=== PATIENT | female | born 1975 | race Hispanic/Latino ===

== ENCOUNTER 2016-07-10 20:57 | Emergency (ER) | payer OTHER ==
[2016-07-10] MEDS ORDERED: Mag-Al Plus 1200 MG/1200 MG/120 MG/30 ML UDCUP ONE (21:29)
[2016-07-10] MEDS ORDERED: Pantoprazole 40 MG VIAL ONE (21:29)
[2016-07-10] MEDS ORDERED: Lidocaine Viscous Sol 2% 15 ml UD Cup ONE (21:30)
[2016-07-10] MEDS ORDERED: Nystatin 500,000 UNITS/5 ML UDCUP ONE (21:35)
[2016-07-10 21:36] LABS: #Basophils 0.1 thou/uL (0.0-0.2); #Eosinphils 0.1 thou/uL (0.0-0.7); #Monocytes 0.5 thou/uL (0.11-0.59); #Neutrophils 2.2 thou/uL (1.40-6.50); %Basophils 1.1 % (0.0-1.0); %Lymphocytes 51.4 % (21.0-51.0); Hematocrit 33.9 % (36.0-47.0); Mean Platelet Volume 7.4 fL (7.4-10.4); Red Blood Cell (RBC) Count 4.31 mill/uL (4.20-5.40); White Blood Cell (WBC) Count 5.8 thou/uL (4.8-10.8)
[2016-07-10 21:46] LABS: ALT (SGPT) 25 U/L (0-55); AST (SGOT) 28 U/L (5-34); Alkaline Phosphatase 83 U/L (40-150); Anion Gap 14 mmol/L (10-20); BUN (Urea Nitrogen) 11 mg/dL (7.0-18.7); Bilirubin, Total 0.3 mg/dL (0.2-1.2); Calc. Creatinine Clearance 0 mL/min (70-130); Carbon Dioxide 23 mmol/L (22-29); Chloride 109 mmol/L (98-107); Estimated GFR-MDRD 81; Globulin 3.1 g/dL (2.4-3.5); Lipase 25 U/L (8-78)
[2016-07-10 21:47] LABS: Troponin I Less than 0.010 ng/mL (< 0.028)
--- NOTE | 2016-07-10 22:14 | RAD ---
CHEST ONE VIEW 07/10/16 HISTORY: Chest pain. COMPARISON: 01/29/15 FINDINGS: The cardiac silhouette is magnified by projection. Pulmonary vasculature is unremarkable. Mediastinu m is midline. There is no confluent air space consolidation or evidence of pneumothorax. IMPRESSION: No active cardiopulmonary abnormalities are demonstrated. POS: H
[2016-07-10 23:33] LABS: Troponin I Less than 0.010 ng/mL (< 0.028)
--- NOTE | 2016-07-11 00:21 | ERRECORD ---
[facility] EMERGENCY RECORD HPI CHEST PAIN (21:42 AGRE) CHIEF COMPLAINT: Patient presents for evaluation of chest pain. HISTORIAN: History provided by patient, PAINS STARTED IN THE LEFT HAND THEN UP THE ARM TO THE LEFT NECK AND THE LEFT SIDE OF HER CHEST ABOUT 30 MINUTES NAIL EXPERT. IT IS A BURNING PAIN AND NUMBNESS. PATIENT SAYS HAD ENDOSCOPY EARLIER IN THE DAY AND THOUGHT IT WAS RELATED BUT CALLED THE NURSE AND WAS TOLD TO GO TO THE ED TO GET CHECKED OUT. SHE WAS LAYING DOWN WHEN THE PAIN ONSET. NOTHING MAKES IT WORST OR BETTER. NO COUGHIN, VOMITING, FEVER OR CHILLS. NO SOB. DENIES HX OF PE OR DVT, CAD, HTN, HIGH CHOLERSTEROL, DIABETES. LOCATION: No localizing symptoms. QUALITY: Pain is dull in nature, described as tingling. SEVERITY: Maximum severity of symptoms moderate, Currently symptoms are moderate. TIME COURSE: Gradual onset of symptoms. ASSOCIATED WITH: Denies any other complaints. EXACERBATED BY: Patient's condition exacerbated by nothing. RELIEVED BY: Patient's condition relieved by nothing. RISK FACTORS: Coronary artery disease risk factors, include family history, No thoracic aortic dissection risk factors, No pulmonary embolism risk factors. WELLS CRITERIA FOR PE: No clinical signs and symptoms of a DVT (0), Patient does not have, or is likely to not have, a primary diagnosis of PE (0), Patient's heart rate is less than 100 (0), Patient has no history of immobilization within 3 days, nor any surgical history within the past 4 weeks (0), Patient has not had an objectively diagnosed PE or DVT previously (0), Patient does not have hemoptysis (0), Patient has not had treatment for malignancy within the last 6 months, nor palliative (0). PAST MEDICAL HISTORY (21:21 [facility]) MEDICAL HISTORY: Notes: GUILLIAN BARRE SYNDROME, Notes: Insomnia and Urinary frequency., Flu vaccine not up to date, Tetanus immunization up to date, Pneumococcal vaccine not up to date, Past medical history includes genitourinary history, kidney stones,. verefied 07/10/16. FEMALE SURGICAL HISTORY: Surgical history of hysterectomy, Date of surgery 03/10/16, Surgical history of cholecystectomy, Surgical history of tubal ligation. verefied 07/10/2016. PSYCHIATRIC HISTORY: No previous psychiatric history. SOCIAL HISTORY: Patient denies alcohol use, Patient denies drug use, Patient has no smoking history, Lives at home, with family. KNOWN ALLERGIES No Known Drug Allergies CURRENT MEDICATIONS oxybutynin chloride: &a-1R&a+25V*p+0X*p5115P*c202B*c15G*c2P*p-0X&a-25V&a+1R Name: Anne Poole : 1975 F40 MedRec: [id number] AcctNum: [id number] Prepared: SatJul 11, 2016 00:17 by Interface Page 1 of 2 pMD [facility] EMERGENCY RECORD TABLET, EXTENDED RELEASE 24 HR : Strength - 5 mg : ORAL Patient Dose: Unknown. (21:13 [facility]) zolpidem: TABLET : Strength - 10 mg : ORAL Patient Dose: Unknown. (21:14 [facility]) CANNOT REMEMBER OTHER MEDS (21:14 [facility]) VITAL SIGNS VITAL SIGNS: BP: 128/72, Pulse: 103, Resp: 18, Pain: 5, O2 sat: 100 on Room Air, Time: 07/10/2016 21:11. (21:11 [facility]) BP: 110/67, Pulse: 93, Resp: 14, Temp: 98.1, Pain: 0, O2 sat: 98 on ra, Time: 07/11/2016 00:01. (SatJul 11, 2016 00:01 [facility] [place] EKG INTERPRETATION (21:16 AGRE) 12 LEAD EKG INTERPRETATION: 12 lead EKG interpreted by Emergency Department Physician at time of study, 12 lead EKG shows normal sinus rhythm, Rate (beats per minute): 87, Conduction with, incomplete right bundle branch block, T waves normal, [place] normal, LVH. RADIOLOGYINTERPRETATION (22:30 AGRE) RESOURCE PROTECTION SPECIALIST: Preliminary review of x-rays by, Radiologist, IMPRESSION: No active cardiopulmonary abnormalities are demonstrated. MEDICATION ADMINISTRATION SUMMARY Drug Name: Protonix intravenous, Dose Ordered: 40 mg, Route: IV Push, Status: Given, Time: 21:39 07/10/2016, Drug Name: GI COCKTAIL- GREEN, Dose Ordered: 40 mL, Route: Oral, Status: Given, Time: 21:38 07/10/2016, Detailed record available in Medication Service section. PROBLEM LIST No recorded problems DIAGNOSIS (23:39 AGRE) FINAL: PRIMARY: CHEST PAIN UNSPECIFIED. PRESCRIPTION No recorded prescriptions DISPOSITION PATIENT: Disposition Type: Discharge, Disposition: *Discharge Home, Condition: Improved. (23:39 TOD) Patient left the department. (SatJul 11, 2016 00:08 THANH) Lyons: TOD=MD West, Julius SETH=JOS Rodriguez, Sunita MSMI=JOS Campa, Soha &a-1R&a+25V*p+0X*e2109C*c202B*c15G*c2P*p-0X&a-25V&a+1R Name: Anne Poole : 1975 F40 MedRec: [id number] AcctNum: [id number] Prepared: SatJul 11, 2016 00:17 by Interface Page 2 of 2 pMD MTDD
--- NOTE | 2016-07-11 00:27 | PICIS ---
[facility] EMERGENCY RECORD TRIAGE (SatJul 10, 2016 21:13 [facility]) TRIAGE NOTES: LEFT SIDED CP. LEFT ARM PAIN AND NUMBNESS. 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 (SatJul 10, 2016 21:13 [facility]) PATIENT: NAME: Anne Poole, AGE: 40, GENDER: female, : Sat1975, TIME OF GREET: SatJul 10, 2016 20:59, PREFERRED LANGUAGE: Swedish, ETHNICITY: or , ECODE BILLING MAP: [facility], SSN: [id number], Zip Code: [address], KG WEIGHT: 83.91, PHONE: , , , PERSON ID: [id number], PCP: BRENNA HENDRIX. (SatJul 10, 2016 21:13 [facility]) COMPLAINT: CHEST PAIN AND LEFT ARM NUBNESS. (SatJul 10, 2016 21:13 [facility]) ADMISSION: URGENCY: 2 Emergent, ADMISSION SOURCE: Home, TRANSPORT: CAR, BED: ER -03. (SatJul 10, 2016 21:13 [facility]) PAIN: Onset was 07/10/2016 20:15. (21:21 [facility]) IMMUNIZATIONS: Flu vaccine not up to date, Tetanus not up to date, Pneumococcal vaccine not up to date. (21:21 [facility]) SIRS SCORING: Heart Rate 55-109 (0), Temp range 96.8-101.1 (0), respiratory rate 12-24 (0), Mental Status altered: no (0). (21:21 [facility]) TRIAGE SCREENING: Patient denies suicidal ideation, Patient denies presence of domestic violence. (21:21 [facility]) TREATMENTS IN PROGRESS: Treatments given Prehospital: NONE. (21:21 [facility]) PROVIDERS: TRIAGE NURSE: Sunita Rodriguez RN. (SatJul 10, 2016 21:13 [facility]) VITAL SIGNS: BP 128/72, Pulse 103, Resp 18, Pain 5, O2 Sat 100, on Room Air, Time 07/10/2016 21:11. (21:11 [facility]) PREVIOUS VISIT ALLERGIES: No Known Drug Allergies. (SatJul 10, 2016 21:13 [facility]) No Known Drug Allergies. (21:21 [facility]) KNOWN ALLERGIES No Known Drug Allergies CURRENT MEDICATIONS oxybutynin chloride: TABLET, EXTENDED RELEASE 24 HR : Strength - 5 mg : ORAL Patient Dose: Unknown. (21:13 [facility]) zolpidem: TABLET : Strength - 10 mg : ORAL Patient Dose: Unknown. (21:14 [facility]) CANNOT REMEMBER OTHER MEDS (21:14 [facility]) VITAL SIGNS VITAL SIGNS: BP: 128/72, Pulse: 103, Resp: 18, Pain: 5, O2 sat: 100 on Room Air, Time: 07/10/2016 21:11. (21:11 [facility]) BP: 110/67, Pulse: 93, Resp: 14, Temp: 98.1, Pain: 0, O2 sat: 98 on ra, Time: 07/11/2016 00:01. (SatJul 11, 2016 00:01 [facility]) &a-1R&a+25V*p+0X*f4530S*c202B*c15G*c2P*p-0X&a-25V&a+1R Name: Anne Poole : 1975 F40 MedRec: [id number] AcctNum: [id number] Prepared: SatJul 11, 2016 00:23 by Interface Page 1 of 7 pMD [facility] EMERGENCY RECORD NURSING ASSESSMENT: CARDIOVASCULAR (21:20 [facility]) CONSTITUTIONAL: Complex assessment performed, Patient arrives ambulatory, Gait steady, History obtained from patient, Patient appears comfortable, Patient cooperative, Patient alert, Oriented to person, place and time, Skin warm, Skin dry, Skin normal in color, Mucous membranes pink, Mucous membranes moist, Patient is well-groomed, Patient complains of LEFT SIDED CP & LEFT ARM PAIN/NUMBNESS. PAIN: sharp pain, to the left chest, to the left arm, Onset of pain 07/10/2016 20:15, on a scale 0-10 patient rates pain as 5. CARDIOVASCULAR: Cardiovascular assessment findings include heart rate normal, Heart rhythm normal sinus, Heart sounds normal, Left radial pulse +3(easily palpated, considered normal), Right radial pulse +3(easily palpated, considered normal), Left dorsalis pedis pulse +3(easily palpated, considered normal), Right dorsalis pedis pulse +3(easily palpated, considered normal), No associated diaphoresis, no associated dyspnea, no associated dizziness, No history of pulmonary embolism, No history of DVT or leg swelling. RESPIRATORY/CHEST: Breath sounds clear, Respiratory assessment findings include respiratory effort easy, Respirations regular, Conversing normally, Neck and chest exam findings include trachea midline, Chest expansion equal, Chest movement symmetrical, no associated cough noted, no associated fever. NURSING PROCEDURE: BEDSIDE RADIOLOGY (21:20 ER) PATIENT IDENTIFIER: Patient actively involved in identification process. BEDSIDE RADIOLOGY: Bedside radiology performed by ALEXSANDRA, Portable chest x-ray performed. NURSING PROCEDURE: DISCHARGE NOTE (SatJul 11, 2016 00:01 [facility] [place] DISCHARGE: Patient discharged to home, ambulating without assistance, family driving, accompanied by other family member, Discharge instructions given to patient, Discharge instructions given to DAUGHTER, Above person(s) verbalized understanding of discharge instructions and follow-up care, Patient treated and evaluated by physician. BELONGINGS: Belongings and valuables with patient at time of discharge include:, Belongings remain with patient, Valuables remain with patient. SAFETY: Side rails up, Cart/Stretcher in lowest position, Family at bedside, Call light within reach, Hospital ID band on. VITAL SIGNS: BP: 110, / 67, Pulse: 93, Resp: 14, Temp: 98.1, Pain: 0, O2 sat: 98, on: ra. NURSING PROCEDURE: EKG CHART PATIENT IDENTIFIER: Patient actively involved in identification process, Patient's identity verified by patient stating name, &a-1R&a+25V*p+0X*q2984J*c202B*c15G*c2P*p-0X&a-25V&a+1R Name: Anne Poole : 1975 F40 MedRec: [id number] AcctNum: [id number] Prepared: SatJul 11, 2016 00:23 by Interface Page 2 of 7 D [facility] EMERGENCY RECORD Patient's identity verified by patient stating date, Patient's identity verified by hospital ID bracelet. (21:13 [facility]) EKG: EKG indicated for complaint of chest pain, 12 lead EKG performed on the left chest, done by JOS Dorsey, first EKG, Notes: EKG DONE AT 21:03. (21:13 [facility]) FOLLOW-UP: After procedure, EKG for interpretation given to Dr. FLOWERS, Notes: NSR. INCOMPLETE RBBB. (21:59 [facility]) NURSING PROCEDURE: IV PATIENT IDENITIFIER: Patient actively involved in identification process, Patient's identity verified by patient stating name, Patient's identity verified by patient stating date, Patient's identity verified by hospital ID bracelet. (21:15 [facility]) IV SITE 1: IV established, to the left antecubital, using a 20 gauge catheter, in one attempt, IV site prepped with Chloroprep, Saline lock established, Flushed with normal saline (mls): 10mLs, Labs drawn at time of placement, labeled in the presence of the patient and sent to lab, Notes: IV site C/D/I. no pain, redness, or swelling. IV start kit/extension tubing used. (21:15 [facility]) FOLLOW-UP SITE 1: After procedure, no drainage at IV site, After procedure, no swelling at IV site, After procedure, no redness at IV site, IV discontinued, due to patient being discharged, catheter intact. (SatJul 11, 2016 00:04 [facility]) SAFETY: Side rails up, Cart/Stretcher in lowest position, Call light within reach, Hospital ID band on. (21:15 [facility]) NURSING PROCEDURE: LAB DRAW (23:10 [facility]) LAB DRAW: Lab draw indicated for obtaining specimens for evaluation, Subsequent lab draw performed, from vascular access device, existing IV site, LEFT AC, Lab specimens labeled in the presence of the patient and sent to lab, 10ML WASTED BEFORE OBTAINING SAMPLE., Notes: REPEAT TROPONIN. ORDER DETAILS Order Name: B type Natriuretic Peptide, Status: Active, Time: 21:14 07/10/2016, User: TOD, - Ordered for: MD Flowers Andrea, - Entered by: MD Flowers Andrea - Tue Jul 10, 2016 21:14, - Quantity: 1, Order Name: COMPANY SECRETARY ED, Status: Done, Time: 21:19 07/10/2016, User: DORINDA, - Ordered for: MD Flowers Andrea, - Entered by: MD Flowers Andrea - Tue Jul 10, 2016 21:14, - Quantity: 1, Order Name: Cardiac Profile w/CKMB & Troponin - I, Status: Active, Time: 21:14 07/10/2016, User: TOD, - Ordered for: MD Flowers Andrea, - Entered by: MD Flowers Andrea - Tue Jul 10, 2016 21:14, - Quantity: 1, &a-1R&a+25V*p+0X*k9547G*c202B*c15G*c2P*p-0X&a-25V&a+1R Name: Anne Poole : 1975 F40 MedRec: [id number] AcctNum: [id number] Prepared: SatJul 11, 2016 00:23 by Interface Page 3 of 7 D [facility] EMERGENCY RECORD Order Name: CBC with Differential, Status: Active, Time: 21:14 07/10/2016, User: TOD, - Ordered for: MD Flowers Andrea, - Entered by: MD Flowers Andrea aneesh Jul 10, 2016 21:14, - Quantity: 1, Order Name: Comprehensive Metabolic Panel, Status: Active, Time: 21:14 07/10/2016, User: TOD, - Ordered for: MD Flowers Andrea, - Entered by: MD Flowers Andrea - Tue Jul 10, 2016 21:14, - Quantity: 1, Order Name: EKG 12 Lead in Emergency Room, Status: Active, Time: 21:14 07/10/2016, User: TOD, - Ordered for: MD Flowers Andrea, - Entered by: MD Flowers Andrea - Tue Jul 10, 2016 21:14, - Quantity: 1, Order Name: Lipase, Status: Active, Time: 21:14 07/10/2016, User: TOD, - Ordered for: MD Flowers Andrea, - Entered by: MD Flowers Andrea - Tue Jul 10, 2016 21:14, - Quantity: 1, Order Name: SALINE LOCK, Status: Done, Time: 21:19 07/10/2016, User: PHILLIP, - Ordered for: MD Flowers Andrea, - Entered by: MD Flowers Andrea - Tue Jul 10, 2016 21:14, - Quantity: 1, Order Name: Troponin - I, Status: Active, Time: 22:57 07/10/2016, User: TOD, - Ordered for: MD Flowers Andrea, - Entered by: MD Flowers Andrea - Tue Jul 10, 2016 22:57, - Quantity: 1, Order Name: XR Chest 1 View Portable, Status: Active, Time: 21:14 07/10/2016, User: TOD, - Ordered for: MD Flowers Andrea, - Entered by: MD Flowers Andrea - aneesh Jul 10, 2016 21:14, - Quantity: 1. MEDICATION ADMINISTRATION SUMMARY Drug Name: Protonix intravenous, Dose Ordered: 40 mg, Route: IV Push, Status: Given, Time: 21:39 07/10/2016, Drug Name: GI COCKTAIL- GREEN, Dose Ordered: 40 mL, Route: Oral, Status: Given, Time: 21:38 07/10/2016, Detailed record available in Medication Service section. MEDICATION SERVICE GI COCKTAIL- GREEN: Order: GI COCKTAIL- GREEN - Dose: 40 mL : Oral (phenobarbital/hyoscyamine sulfate/atropine sulfate/scopolamine hydrobromide) [10 mL] Lidocaine Viscous (lidocaine HCl) [10 mL] MAG-AL (magnesium hydroxide/aluminum hydroxide) [20 mL] &a-1R&a+25V*p+0X*z5516I*c202B*c15G*c2P*p-0X&a-25V&a+1R Name: Anne Poole : 1975 F40 MedRec: [id number] AcctNum: [id number] Prepared: SatJul 11, 2016 00:23 by Interface Page 4 of 7 pMD [facility] EMERGENCY RECORD Ordered by: Julius Flowers MD Entered by: Julius Flowers MD SatJul 10, 2016 21:15 , Acknowledged by: Sunita Rodriguez RN SatJul 10, 2016 21:24 Documented as given by: Yong Alex RN SatJul 10, 2016 21:38 Patient, Medication, Dose, Route and Time verified prior to administration. Amount given: 40ML, Site: Medication administered P.O., Patient appears Awake and alert- acceptable, Correct patient, time, route, dose and medication confirmed prior to administration, Patient advised of actions and side-effects prior to administration, Allergies confirmed and medications reviewed prior to administration, Administered by YONG ALEX RN, Patient in position of comfort, Side rails up, Cart in lowest position, Family at bedside. Protonix intravenous: Order: Protonix intravenous (pantoprazole sodium) - Dose: 40 mg : IV Push Ordered by: Julius Flowers MD Entered by: Julius Flowers MD SatJul 10, 2016 21:15 , Acknowledged by: Sunita Rodriguez RN Jul 10, 2016 21:24 Documented as given by: Yong Alex RN Jul 10, 2016 21:39 Patient, Medication, Dose, Route and Time verified prior to administration. Amount given: 40MG, IV SITE #1 IVP, initial medication, Slowly, Awake and alert- acceptable, Catheter placement confirmed via flush prior to administration, IV site without signs or symptoms of infiltration during medication administration, No swelling during administration, No drainage during administration, IV flushed after administration, Correct patient, time, route, dose and medication confirmed prior to administration, Patient advised of actions and side-effects prior to administration, Allergies confirmed and medications reviewed prior to administration, Administered by YONG ALEX RN, Patient in position of comfort, Side rails up, Cart in lowest position, Family at bedside. HPI CHEST PAIN (21:42 AGRE) CHIEF COMPLAINT: Patient presents for evaluation of chest pain. 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 IT IS A BURNING PAIN AND NUMBNESS. PATIENT SAYS HAD ENDOSCOPY EARLIER IN THE DAY AND THOUGHT IT WAS RELATED BUT CALLED THE NURSE AND WAS TOLD TO GO TO THE ED TO GET CHECKED OUT. SHE WAS LAYING DOWN WHEN THE PAIN ONSET. NOTHING MAKES IT WORST OR BETTER. NO COUGHIN, VOMITING, FEVER OR CHILLS. NO SOB. DENIES HX OF PE OR DVT, CAD, HTN, HIGH CHOLERSTEROL, DIABETES. LOCATION: No localizing symptoms. QUALITY: Pain is dull in nature, described as tingling. SEVERITY: Maximum severity of symptoms moderate, Currently symptoms are moderate. TIME COURSE: Gradual onset of symptoms. &a-1R&a+25V*p+0X*b0222A*c202B*c15G*c2P*p-0X&a-25V&a+1R Name: Anne Poole : 1975 F40 MedRec: [id number] AcctNum: [id number] Prepared: SatJul 11, 2016 00:23 by Interface Page 5 of 7 pMD [facility] EMERGENCY RECORD ASSOCIATED WITH: Denies any other complaints. EXACERBATED BY: Patient's condition exacerbated by nothing. RELIEVED BY: Patient's condition relieved by nothing. RISK FACTORS: Coronary artery disease risk factors, include family history, No thoracic aortic dissection risk factors, No pulmonary embolism risk factors. WELLS CRITERIA FOR PE: No clinical signs and symptoms of a DVT (0), Patient does not have, or is likely to not have, a primary diagnosis of PE (0), Patient's heart rate is less than 100 (0), Patient has no history of immobilization within 3 days, nor any surgical history within the past 4 weeks (0), Patient has not had an objectively diagnosed PE or DVT previously (0), Patient does not have hemoptysis (0), Patient has not had treatment for malignancy within the last 6 months, nor palliative (0). PAST MEDICAL HISTORY (21:21 [facility]) MEDICAL HISTORY: Notes: GUILLIAN BARRE SYNDROME, Notes: Insomnia and Urinary frequency., Flu vaccine not up to date, Tetanus immunization up to date, Pneumococcal vaccine not up to date, Past medical history includes genitourinary history, kidney stones,. verefied 07/10/16. FEMALE SURGICAL HISTORY: Surgical history of hysterectomy, Date of surgery 03/10/16, Surgical history of cholecystectomy, Surgical history of tubal ligation. verefied 07/10/2016. PSYCHIATRIC HISTORY: No previous psychiatric history. SOCIAL HISTORY: Patient denies alcohol use, Patient denies drug use, Patient has no smoking history, Lives at home, with family. EVENTS TRANSFER: Triage to Emergency Emergency Room -03. (21:13 LK) Removed from Emergency Emergency Room -03. (SatJul 11, 2016 00:08 [facility]) RADIOLOGYINTERPRETATION (22:30 AGRE) ROOM WORKER: Preliminary review of x-rays by, Radiologist, IMPRESSION: No active cardiopulmonary abnormalities are demonstrated. EKG INTERPRETATION (21:16 AGRE) 12 LEAD EKG INTERPRETATION: 12 lead EKG interpreted by Emergency Department Physician at time of study, 12 lead EKG shows normal sinus rhythm, Rate (beats per minute): 87, Conduction with, incomplete right bundle branch block, T waves normal, [place] normal, LVH. PROBLEM LIST No recorded problems DIAGNOSIS (23:39 AGRE) FINAL: PRIMARY: CHEST PAIN UNSPECIFIED. &a-1R&a+25V*p+0X*y0107C*c202B*c15G*c2P*p-0X&a-25V&a+1R Name: Anne Poole : 1975 F40 MedRec: [id number] AcctNum: [id number] Prepared: SatJul 11, 2016 00:23 by Interface Page 6 of 7 pMD [facility] EMERGENCY RECORD DISPOSITION PATIENT: Disposition Type: Discharge, Disposition: *Discharge Home, Condition: Improved. (23:39 AGRE) Patient left the department. (SatJul 11, 2016 00:08 [facility] [place] INSTRUCTION (23:40 AGRE) DISCHARGE: ATYPICAL CHEST PAIN UNKNOWN CAUSE. SPECIAL: THE CAUSE OF YOUR PAIN IS UNCLEAR AT THIS TIME. TAKE MOTRIN AND TYLENOL NEEDED FOR PAIN. FOLLOW UP WITH YOUR PHYSICIAN IN THE MORNING TO ARRANGE FOR FURTHER EVALUATION AND MANAGEMENT OF YOUR PAIN. PRESCRIPTION No recorded prescriptions IMAGING *EKG: Image captured from scanner. (21:59 [facility]) *DISCHARGE INSTRUCTIONS RECEIPT: Image captured from scanner. (SatJul 11, 2016 00:05 [facility] [place] *SUPPLY CHARGE SHEET: Image captured from scanner. (SatJul 11, 2016 00:06 [facility] [place] Lyons: AGRE=MD West, Julius CORTEZ=MICHAEL Sanchez Kayce [facility]=JOS Rodriguez, Sunita [facility]=JOS Campa, Soha &a-1R&a+25V*p+0X*i7110K*c202B*c15G*c2P*p-0X&a-25V&a+1R Name: Anne Poole : 1975 F40 MedRec: [id number] AcctNum: [id number] Prepared: SatJul 11, 2016 00:23 by Interface Page 7 of 7 [facility]MD [facility]
== END 2016-07-11 00:01 | disposition home or self-care (01) ==
LOC: NAV ERS 20:57
DX: R07.9 Chest pain, unspecified (principal); Z79.899 Other long term (current) drug therapy
CPT/HCPCS: 36415; 71010; 80053; 82553; 83690; 83880; 84484; 85025; 93005; 96374; C9113

== ENCOUNTER 2018-11-11 23:42 | Emergency (ER) | payer OTHER ==
[2018-11-11] MEDS ORDERED: methylPREDNISolone Acetate 40 mg/ml Vial ONE (23:57)
== END 2018-11-12 00:33 | disposition home or self-care (01) ==
LOC: NAV ERS 23:42
DX: T59.91XA Toxic effect of unspecified gases, fumes and vapors, accidental (unintentional), initial encounter (principal); J98.01 Acute bronchospasm; Z87.442 Personal history of urinary calculi; Z79.899 Other long term (current) drug therapy
CPT/HCPCS: 96372; J1030

== ENCOUNTER 2020-08-29 16:41 | Emergency (ER) | payer OTHER ==
[2020-08-29] MEDS ORDERED: Sodium Chloride 0.9% 1,000 ML ONE (17:18)
[2020-08-29] MEDS ORDERED: Ondansetron PF 4 MG/2 ML Vial ONE (17:18)
[2020-08-29] MEDS ORDERED: Ketorolac Tromethamine 30 MG/ML VIAL ONE (17:18)
[2020-08-29 17:30] LABS: Bilirubin Negative (Negative); Blood, Urine Negative (Negative); Glucose, Urine (Dipstick) Negative (Negative); Ketone, Urine Negative (Negative); Leukocyte Negative (Negative); Nitrite Negative (Negative); Protein, Urine (Dipstick) Negative (Neg-Trace); Urobilinogen 0.2 mg/dL (Less than 2)
[2020-08-29 17:45] LABS: #Eosinphils 0.1 thou/uL (0.0-0.7); #Lymphocytes 1.3 thou/uL (1.20-3.40); #Monocytes 0.3 thou/uL (0.11-0.59); #Neutrophils 3.5 thou/uL (1.40-6.50); %Basophils 0.6 % (0.0-1.0); %Eosinophils 1.2 % (0.0-10.0); %Lymphocytes 24.6 % (21.0-51.0); %Neutrophils 67.7 % (42.0-75.0); Hemoglobin 12.5 g/dL (12.0-16.0); Mean Corpuscular HGB CONC 33.1 g/dL (32.0-36.0); Mean Corpuscular Hemoglobin 27.2 pg (27.0-31.0); Mean Platelet Volume 8.2 fL (7.4-10.4); Platelet Count 191 thou/uL (130-400); RBC Distribution Width 12.2 % (11.5-14.5); White Blood Cell (WBC) Count 5.2 thou/uL (4.8-10.8)
[2020-08-29 17:54] LABS: Clarity SL HAZY (Clear)
[2020-08-29 18:00] LABS: ALT (SGPT) 66 U/L (8-55); AST (SGOT) 69 U/L (5-34); Albumin 3.8 g/dL (3.5-5.0); Alkaline Phosphatase 98 U/L (40-110); Anion Gap 12 mmol/L (10-20); BUN (Urea Nitrogen) 11 mg/dL (7.0-18.7); Bilirubin, Total 0.5 mg/dL (0.2-1.2); Calc. Creatinine Clearance 0 mL/min (70-130); Calcium 7.7 mg/dL (7.8-10.44); Carbon Dioxide 24 mmol/L (22-29); Chloride 106 mmol/L (98-107); Globulin 2.7 g/dL (2.4-3.5); Lipase 13 U/L (8-78); Protein, Total 6.5 g/dL (6.0-8.3); Sodium 139 mmol/L (136-145)
[2020-08-29 18:06] LABS: Glucose 108 mg/dL (70-105)
[2020-08-29] MEDS ORDERED: Potassium Chloride 20 MEQ TAB ONE (18:08)
[2020-08-30 20:59] LABS: SARS-CoV-2 PCR by NAA Not Detected (NotDetected)
== END 2020-08-29 18:35 | disposition home or self-care (01) ==
LOC: NAV ERS 16:41
DX: A08.4 Viral intestinal infection, unspecified (principal); E87.6 Hypokalemia; G47.00 Insomnia, unspecified; G61.0 Guillain-Barre syndrome; K76.0 Fatty (change of) liver, not elsewhere classified; Z87.442 Personal history of urinary calculi
CPT/HCPCS: 80053; 81003; 82274; 83630; 83690; 85025; 87324; 87449; 87635; 96361; 96374; 96375; J1885; J2405; J7050; U0003; U0005

== ENCOUNTER 2020-11-28 23:43 | Emergency (ER) | payer OTHER ==
[2020-11-29 00:16] LABS: Bilirubin Negative (Negative); Blood, Urine Moderate (Negative); Clarity Cloudy (Clear); Glucose, Urine (Dipstick) Negative (Negative); Ketone, Urine Trace mg/dL (Negative); Leukocyte Small (Negative); Nitrite Negative (Negative); Protein, Urine (Dipstick) 30 mg/dL (Neg-Trace); Specific Gravity, Urine 1.025 (1.002-1.036); Urobilinogen 0.2 mg/dL (Less than 2)
[2020-11-29 00:18] LABS: WBC/HPF Greater Than 50 HPF (0-3)
[2020-11-29 00:19] LABS: Bacteria/HPF 1+ HPF (None Seen); Squamous Epithelial 0-3 HPF (0-3)
[2020-11-29] MEDS ORDERED: Phenazopyridine HCl 97.5 MG TABLET ONE (00:29)
[2020-11-29] MEDS ORDERED: Cipro 250 MG TAB ONE (00:29)
== END 2020-11-29 00:35 | disposition home or self-care (01) ==
LOC: NAV ERS 23:43
DX: N39.0 Urinary tract infection, site not specified (principal); Z79.899 Other long term (current) drug therapy
CPT/HCPCS: 51701; 81003; 81015; 87077; 87086; 87186

== ENCOUNTER 2021-04-06 05:21 | Emergency (ER) | payer OTHER ==
[2021-04-06 05:45] LABS: Bilirubin Negative (Negative); Blood, Urine Negative (Negative); Clarity Slightly Cloudy (Clear); Glucose, Urine (Dipstick) Negative (Negative); Ketone, Urine Negative (Negative); Leukocyte Large (Negative); Nitrite Positive (Negative); Protein, Urine (Dipstick) Negative (Neg-Trace); Urobilinogen 0.2 mg/dL (Less than 2); pH, Urine 7.5 (5.0-9.0)
[2021-04-06 05:51] LABS: RBC/HPF None Seen HPF (0-3); Squamous Epithelial 0-3 HPF (0-3); WBC/HPF 21-50 HPF (0-3)
[2021-04-06 05:52] LABS: Bacteria/HPF 1+ HPF (None Seen)
[2021-04-06 05:55] LABS: #Basophils 0.1 thou/uL (0.0-0.2); #Eosinphils 0.1 thou/uL (0.0-0.7); #Lymphocytes 2.4 thou/uL (1.20-3.40); #Monocytes 0.4 thou/uL (0.11-0.59); %Basophils 1.6 % (0.0-1.0); %Eosinophils 2.3 % (0.0-10.0); %Lymphocytes 39.7 % (21.0-51.0); %Monocytes 6.3 % (0.0-10.0); %Neutrophils 50.2 % (42.0-75.0); Hemoglobin 12.4 g/dL (12.0-16.0); Mean Corpuscular HGB CONC 31.9 g/dL (32.0-36.0); Mean Corpuscular Volume 84.6 fL (78.0-98.0); Mean Platelet Volume 8.1 fL (7.4-10.4); Platelet Count 225 thou/uL (130-400); RBC Distribution Width 12.6 % (11.5-14.5); Red Blood Cell (RBC) Count 4.57 mill/uL (4.20-5.40); White Blood Cell (WBC) Count 6.1 thou/uL (4.8-10.8)
[2021-04-06 06:05] LABS: ALT (SGPT) 34 U/L (8-55); AST (SGOT) 31 U/L (5-34); Albumin 3.8 g/dL (3.5-5.0); Alkaline Phosphatase 103 U/L (40-110); Anion Gap 9 mmol/L (10-20); BUN (Urea Nitrogen) 12 mg/dL (7.0-18.7); Bilirubin, Total 0.4 mg/dL (0.2-1.2); Calc. Creatinine Clearance 0 mL/min (70-130); Calcium 8.9 mg/dL (7.8-10.44); Carbon Dioxide 29 mmol/L (22-29); Chloride 105 mmol/L (98-107); Glucose 79 mg/dL (70-105); Potassium 3.7 mmol/L (3.5-5.1); Protein, Total 6.8 g/dL (6.0-8.3); Sodium 139 mmol/L (136-145)
[2021-04-06] MEDS ORDERED: Piperacillin/Tazobactam 4.5 GM VIAL ONE (06:13)
[2021-04-06] MEDS ORDERED: Sodium Chloride 0.9% 100 ML ONE (06:13)
[2021-04-06] MEDS ORDERED: Ketorolac Tromethamine 30 MG/ML VIAL ONE (06:15)
[2021-04-06] MEDS ORDERED: Sodium Chloride 0.9% 1,000 ML ONE (06:15)
== END 2021-04-06 07:30 | disposition home or self-care (01) ==
LOC: NAV ERS 05:21
DX: N39.0 Urinary tract infection, site not specified (principal); Z91.14 Patient's other noncompliance with medication regimen; G47.00 Insomnia, unspecified; Z79.899 Other long term (current) drug therapy
CPT/HCPCS: 80053; 81003; 81015; 85025; 87077; 87086; 87186; 96365; 96375; J1885; J2543; J3490; J7050

== ENCOUNTER 2021-04-13 06:31 | Inpatient (IN) | payer OTHER ==
[2021-04-13] MEDS ORDERED: Sodium Chloride 0.9% 100 ML ONE (07:11)
[2021-04-13] MEDS ORDERED: Cefepime 2 GM VIAL ONE (07:11)
[2021-04-13] MEDS ORDERED: Ketorolac Tromethamine 30 MG/ML VIAL ONE (07:11)
[2021-04-13] MEDS ORDERED: Sodium Chloride 0.9% 1,000 ML ONE (07:12)
[2021-04-13 07:18] LABS: #Basophils 0.1 thou/uL (0.0-0.2); #Eosinphils 0.1 thou/uL (0.0-0.7); #Lymphocytes 1.6 thou/uL (1.20-3.40); #Monocytes 0.6 thou/uL (0.11-0.59); #Neutrophils 5.4 thou/uL (1.40-6.50); %Lymphocytes 21.1 % (21.0-51.0); %Monocytes 7.3 % (0.0-10.0); %Neutrophils 69.5 % (42.0-75.0); Hemoglobin 12.7 g/dL (12.0-16.0); Mean Corpuscular HGB CONC 32.5 g/dL (32.0-36.0); Mean Corpuscular Hemoglobin 27.3 pg (27.0-31.0); Mean Corpuscular Volume 83.9 fL (78.0-98.0); Mean Platelet Volume 7.7 fL (7.4-10.4); Platelet Count 203 thou/uL (130-400); RBC Distribution Width 12.6 % (11.5-14.5); Red Blood Cell (RBC) Count 4.66 mill/uL (4.20-5.40); White Blood Cell (WBC) Count 7.8 thou/uL (4.8-10.8)
[2021-04-13 07:29] LABS: ALT (SGPT) 109 U/L (8-55); AST (SGOT) 86 U/L (5-34); Albumin 3.8 g/dL (3.5-5.0); Alkaline Phosphatase 148 U/L (40-110); Anion Gap 13 mmol/L (10-20); BUN (Urea Nitrogen) 14 mg/dL (7.0-18.7); Bilirubin, Total 0.5 mg/dL (0.2-1.2); Calc. Creatinine Clearance 0 mL/min (70-130); Calcium 9.3 mg/dL (7.8-10.44); Carbon Dioxide 27 mmol/L (22-29); Chloride 103 mmol/L (98-107); Globulin 3.2 g/dL (2.4-3.5); Glucose 105 mg/dL (70-105); Sodium 139 mmol/L (136-145)
[2021-04-13 08:35] LABS: Bilirubin Negative (Negative); Blood, Urine Small (Negative); Clarity Clear (Clear); Glucose, Urine (Dipstick) Negative (Negative); Ketone, Urine Negative (Negative); Leukocyte Trace (Negative); Nitrite Negative (Negative); Protein, Urine (Dipstick) Negative (Neg-Trace); Specific Gravity, Urine 1.015 (1.005-1.030); Urobilinogen 0.2 mg/dL (Less than 2); pH, Urine 6.5 (5.0-9.0)
[2021-04-13 08:49] LABS: Bacteria/HPF Rare-Few HPF (None Seen); Squamous Epithelial 0-3 HPF (0-3); WBC/HPF 0-3 HPF (0-3)
[2021-04-13] MEDS ORDERED: Acetaminophen 325 MG TAB ONE (09:32)
[2021-04-13 09:39] LABS: SARS-CoV-2 NAA Rapid Test Not Detected (NotDetected)
[2021-04-13] MEDS ORDERED: Ondansetron ODT 4 MG TAB PO PRN (11:10)
[2021-04-13] MEDS ORDERED: Ondansetron PF 4 MG/2 ML Vial IVP PRN (11:10)
[2021-04-13] MEDS: Ketorolac Tromethamine 30 MG/ML VIAL IVP PRN (13:24)
[2021-04-13] MEDS: Cefepime 2 GM in Sodium Chloride 0.9% 100 ML IVPB SCH (19:31)
[2021-04-13] MEDS: Acetaminophen 325 MG TAB PO PRN (19:34)
[2021-04-13] MEDS: Cyclobenzaprine 10 MG TAB PO PRN (20:37)
[2021-04-13] MEDS: Amitriptyline HCl 25 MG TAB PO SCH (20:37)
[2021-04-13] MEDS: Zolpidem Tartrate 5 MG TAB PO PRN (20:37)
[2021-04-14] MEDS: LINZESS 290 MCG PO SCH (07:30)
[2021-04-14] MEDS: Cefepime 2 GM in Sodium Chloride 0.9% 100 ML IVPB SCH ×2 (08:24→20:00)
[2021-04-14] MEDS: Citalopram 20 MG TAB PO SCH (08:32)
[2021-04-14] MEDS: ESTROGEN PO SCH (08:32)
[2021-04-14] MEDS: Cholecalciferol 1,000 UNITS (25 MCG) TAB PO SCH (08:32)
[2021-04-14] MEDS ORDERED: PREGABALIN PO SCH ×2 (09:00→21:00)
[2021-04-14] MEDS: Ketorolac Tromethamine 30 MG/ML VIAL IVP PRN (13:29)
[2021-04-14] MEDS: Vancomycin HCl 1 GM in Sodium Chloride 0.9% 250 ML 250 ML IVPB SCH ×2 (14:29→15:47)
[2021-04-14] MEDS: Acetaminophen 325 MG TAB PO PRN ×2 (17:18→21:15)
[2021-04-14] MEDS ORDERED: Vancomycin HCl 1 GM, Admixture Fee 1 EACH in Sodium Chloride 0.9% 250 ML 250 ML IVPB SCH (21:00)
[2021-04-14] MEDS: Cyclobenzaprine 10 MG TAB PO PRN (21:00)
[2021-04-14] MEDS: Amitriptyline HCl 25 MG TAB PO SCH (21:00)
[2021-04-14] MEDS: Zolpidem Tartrate 5 MG TAB PO PRN (21:00)
[2021-04-14] MEDS ORDERED: Pregabalin 50 MG CAP PO SCH (21:00)
[2021-04-14] MEDS: Pregabalin 50 MG CAP PO SCH (21:25)
[2021-04-15 06:43] LABS: #Basophils 0.1 thou/uL (0.0-0.2); #Eosinphils 0.1 thou/uL (0.0-0.7); #Lymphocytes 1.6 thou/uL (1.20-3.40); #Monocytes 0.4 thou/uL (0.11-0.59); #Neutrophils 2.9 thou/uL (1.40-6.50); %Eosinophils 2.1 % (0.0-10.0); %Lymphocytes 32.1 % (21.0-51.0); %Monocytes 7.6 % (0.0-10.0); %Neutrophils 57.2 % (42.0-75.0); Hemoglobin 10.9 g/dL (12.0-16.0); Mean Corpuscular HGB CONC 32.3 g/dL (32.0-36.0); Mean Corpuscular Hemoglobin 27.4 pg (27.0-31.0); Mean Corpuscular Volume 84.9 fL (78.0-98.0); Mean Platelet Volume 8.3 fL (7.4-10.4); Platelet Count 193 thou/uL (130-400); RBC Distribution Width 12.5 % (11.5-14.5); Red Blood Cell (RBC) Count 3.96 mill/uL (4.20-5.40); White Blood Cell (WBC) Count 5.1 thou/uL (4.8-10.8)
[2021-04-15 06:55] LABS: Anion Gap 10 mmol/L (10-20); BUN (Urea Nitrogen) 13 mg/dL (7.0-18.7); Calc. Creatinine Clearance 73 mL/min (70-130); Calcium 8.6 mg/dL (7.8-10.44); Carbon Dioxide 27 mmol/L (22-29); Chloride 109 mmol/L (98-107); Glucose 93 mg/dL (70-105); Potassium 3.9 mmol/L (3.5-5.1); Sodium 142 mmol/L (136-145)
[2021-04-15] MEDS ORDERED: Loratadine 10 MG TAB ONE (07:58)
[2021-04-15] MEDS ORDERED: Cefepime 2 GM VIAL ONE ×2 (07:58→20:36)
[2021-04-15] MEDS: Cefepime 2 GM in Sodium Chloride 0.9% 100 ML IVPB SCH ×2 (08:02→20:48)
[2021-04-15] MEDS: LINZESS 290 MCG PO SCH (08:03)
[2021-04-15] MEDS: Citalopram 20 MG TAB PO SCH (08:03)
[2021-04-15] MEDS: Cholecalciferol 1,000 UNITS (25 MCG) TAB PO SCH (08:04)
[2021-04-15] MEDS: ESTROGEN PO SCH (08:04)
[2021-04-15] MEDS ORDERED: Sodium Chloride 0.9% 10 ML ONE (08:07)
[2021-04-15] MEDS: Pregabalin 50 MG CAP PO SCH ×2 (08:08→20:49)
[2021-04-15 14:32] LABS: Vancomycin, Random 8.8 ug/mL (See Comment)
[2021-04-15] MEDS: Ketorolac Tromethamine 30 MG/ML VIAL IVP PRN (17:28)
[2021-04-15] MEDS ORDERED: Vancomycin HCl 1 GM in Sodium Chloride 0.9% 250 ML 250 ML IVPB SCH (18:00)
[2021-04-15] MEDS ORDERED: Vancomycin HCl 500 MG VIAL ONE (18:18)
[2021-04-15] MEDS ORDERED: Vancomycin HCl 500 MG in Sodium Chloride 0.9% 100 ML IVPB SCH (19:00)
[2021-04-15] MEDS: Amitriptyline HCl 25 MG TAB PO SCH (20:49)
[2021-04-15] MEDS: Acetaminophen 325 MG TAB PO PRN (20:50)
[2021-04-15] MEDS: Zolpidem Tartrate 5 MG TAB PO PRN (20:50)
[2021-04-15] MEDS: Cyclobenzaprine 10 MG TAB PO PRN (20:50)
[2021-04-16] MEDS ORDERED: Cefepime 1 GM VIAL ONE (07:36)
[2021-04-16] MEDS ORDERED: Cefepime 2 GM VIAL ONE ×2 (07:39→20:42)
[2021-04-16] MEDS: Citalopram 20 MG TAB PO SCH (07:54)
[2021-04-16] MEDS: Cholecalciferol 1,000 UNITS (25 MCG) TAB PO SCH (07:54)
[2021-04-16] MEDS: Cefepime 2 GM in Sodium Chloride 0.9% 100 ML IVPB SCH ×2 (07:55→20:57)
[2021-04-16] MEDS: ESTROGEN PO SCH (07:56)
[2021-04-16] MEDS: LINZESS 290 MCG PO SCH (07:56)
[2021-04-16] MEDS: Pregabalin 50 MG CAP PO SCH ×2 (07:57→20:59)
[2021-04-16 11:48] VITALS: BMI 37.5
[2021-04-16] MEDS: Ketorolac Tromethamine 30 MG/ML VIAL IVP PRN (16:44)
[2021-04-16 17:20] LABS: Vancomycin, Random 6.9 ug/mL (See Comment)
[2021-04-16] MEDS ORDERED: Vancomycin HCl 1 GM in Sodium Chloride 0.9% 250 ML 250 ML IVPB SCH ×2 (18:00→19:00)
[2021-04-16] MEDS: Zolpidem Tartrate 5 MG TAB PO PRN (20:58)
[2021-04-16] MEDS: Amitriptyline HCl 25 MG TAB PO SCH (20:58)
[2021-04-16] MEDS: Cyclobenzaprine 10 MG TAB PO PRN (20:58)
[2021-04-17] MEDS: Acetaminophen 325 MG TAB PO PRN (07:25)
[2021-04-17] MEDS: LINZESS 290 MCG PO SCH (07:29)
[2021-04-17] MEDS: Citalopram 20 MG TAB PO SCH (08:27)
[2021-04-17] MEDS: Cholecalciferol 1,000 UNITS (25 MCG) TAB PO SCH (08:27)
[2021-04-17] MEDS: ESTROGEN PO SCH (08:36)
[2021-04-17] MEDS: Pregabalin 50 MG CAP PO SCH (08:44)
[2021-04-17] MEDS ORDERED: Cefepime 2 GM VIAL ONE (08:48)
[2021-04-17] MEDS: Cefepime 2 GM in Sodium Chloride 0.9% 100 ML IVPB SCH (08:51)
[2021-04-17] MEDS ORDERED: Sulfameth/Trimethoprim DS 800-160mg TAB PO SCH ×2 (13:45→21:00)
[2021-04-17 15:59] VITALS: BP 143/78; TEMP 98.4
== END 2021-04-17 16:25 | disposition home or self-care (01) | DRG 690 ==
LOC: NAV ERS 06:31 → NAV ACUTE 10:43 → OBSVTOIN 13:31
PROVIDERS: ADMIT Family Medicine; ATTEND Family Medicine
DX: N10 Acute pyelonephritis (principal); F41.9 Anxiety disorder, unspecified; F32.A Depression, unspecified; K21.9 Gastro-esophageal reflux disease without esophagitis; G47.00 Insomnia, unspecified; Z20.822 Contact with and (suspected) exposure to COVID-19; E66.9 Obesity, unspecified; Z68.37 Body mass index [BMI] 37.0-37.9, adult; Z90.710 Acquired absence of both cervix and uterus; Z90.49 Acquired absence of other specified parts of digestive tract; Z98.51 Tubal ligation status
CPT/HCPCS: 36415; 80048; 80053; 80202; 81003; 81015; 83605; 85025; 87040; 87086; 87149; J0692; J1885; J2405; J3370; J3490; J7050; U0002

== ENCOUNTER 2022-01-18 18:14 | Emergency (ER) | payer OTHER ==
[2022-01-18 18:48] LABS: Bacteria/HPF 3+ HPF (None Seen); Bilirubin Negative (Negative); Blood, Urine Trace (Negative); Clarity Clear (Clear); Glucose, Urine (Dipstick) Negative (Negative); Ketone, Urine Negative (Negative); Leukocyte Large (Negative); Nitrite Positive (Negative); Protein, Urine (Dipstick) Negative (Neg-Trace); RBC/HPF 0-3 HPF (0-3); Urobilinogen 0.2 mg/dL (Less than 2)
[2022-01-18] MEDS ORDERED: Sodium Chloride 0.9% 1,000 ML ONE (19:02)
[2022-01-18 19:28] LABS: %Lymphocytes 47.5 % (21.0-51.0); Hemoglobin 12.1 g/dL (12.0-16.0); Manual Diff?? NO; Mean Corpuscular HGB CONC 30.9 g/dL (32.0-36.0); Mean Corpuscular Volume 84.3 fL (78.0-98.0); Mean Platelet Volume 9.9 fL (7.4-10.4); Platelet Count 229 thou/uL (130-400); RBC Distribution Width 13.2 % (11.5-14.5); Red Blood Cell (RBC) Count 4.66 mill/uL (4.20-5.40); White Blood Cell (WBC) Count 6.1 thou/uL (4.8-10.8)
[2022-01-18 19:29] LABS: #Basophils 0.1 thou/uL (0.0-0.2); #Eosinphils 0.1 thou/uL (0.0-0.7); #Lymphocytes 2.9 thou/uL (1.20-3.40); #Monocytes 0.4 thou/uL (0.11-0.59); #Neutrophils 2.6 thou/uL (1.40-6.50); %Eosinophils 1.9 % (0.0-10.0); %Monocytes 6.5 % (0.0-10.0)
[2022-01-18 19:38] LABS: Anion Gap 16 mmol/L (10-20); BUN (Urea Nitrogen) 13 mg/dL (7.0-18.7); Calc. Creatinine Clearance 0 mL/min (70-130); Calcium 9.6 mg/dL (7.8-10.44); Carbon Dioxide 23 mmol/L (22-29); Chloride 106 mmol/L (98-107); Estimated GFR 90; Glucose 86 mg/dL (70-105); Potassium 4.2 mmol/L (3.5-5.1); Sodium 141 mmol/L (136-145)
== END 2022-01-18 20:26 | disposition home or self-care (01) ==
LOC: NAV ERS 18:14
DX: E86.0 Dehydration (principal); N39.0 Urinary tract infection, site not specified; K21.9 Gastro-esophageal reflux disease without esophagitis; Z79.899 Other long term (current) drug therapy
CPT/HCPCS: 80048; 81003; 81015; 85025; 87077; 87086; 87186; 96360; J7050

== ENCOUNTER 2022-02-16 14:06 | Emergency (ER) | payer OTHER ==
[2022-02-16 15:07] LABS: Bilirubin Negative (Negative); Blood, Urine Moderate (Negative); Clarity Cloudy (Clear); Glucose, Urine (Dipstick) 100 mg/dL (Negative); Ketone, Urine Negative (Negative); Leukocyte Moderate (Negative); Nitrite Positive (Negative); Protein, Urine (Dipstick) 30 mg/dL (Neg-Trace); Specific Gravity, Urine 1.025 (1.005-1.030); Urobilinogen 0.2 mg/dL (Less than 2)
[2022-02-16 15:08] LABS: Bacteria/HPF 4+ HPF (None Seen); WBC/HPF Greater Than 50 HPF (0-3)
[2022-02-16 15:09] LABS: Renal Epithelial 0-3 HPF (None Seen)
[2022-02-16] MEDS ORDERED: Ketorolac Tromethamine 30 MG/ML VIAL ONE (15:29)
[2022-02-16] MEDS ORDERED: Sodium Chloride 0.9% 100 ML ONE (15:29)
[2022-02-16] MEDS ORDERED: Ondansetron PF 4 MG/2 ML Vial ONE (15:29)
[2022-02-16] MEDS ORDERED: cefTRIAXone\\ROCEPHIN 2 GM VIAL ONE (15:29)
[2022-02-16 15:41] LABS: Hemoglobin 11.1 g/dL (12.0-16.0); Mean Corpuscular HGB CONC 30.7 g/dL (32.0-36.0); Mean Corpuscular Hemoglobin 25.4 pg (27.0-31.0); Mean Corpuscular Volume 82.8 fL (78.0-98.0); Mean Platelet Volume 8.6 fL (7.4-10.4); Platelet Count 168 thou/uL (130-400); RBC Distribution Width 13.1 % (11.5-14.5); Red Blood Cell (RBC) Count 4.36 mill/uL (4.20-5.40); White Blood Cell (WBC) Count 10.6 thou/uL (4.8-10.8)
[2022-02-16 15:50] LABS: ALT (SGPT) 52 U/L (8-55); AST (SGOT) 67 U/L (5-34); Albumin 3.7 g/dL (3.5-5.0); Alkaline Phosphatase 169 U/L (40-110); Anion Gap 14 mmol/L (10-20); BUN (Urea Nitrogen) 11 mg/dL (7.0-18.7); Bilirubin, Total 1.5 mg/dL (0.2-1.2); Calc. Creatinine Clearance 0 mL/min (70-130); Calcium 8.9 mg/dL (7.8-10.44); Carbon Dioxide 23 mmol/L (22-29); Chloride 103 mmol/L (98-107); Estimated GFR 86; Glucose 148 mg/dL (70-105); Potassium 3.3 mmol/L (3.5-5.1); Protein, Total 6.7 g/dL (6.0-8.3); Sodium 137 mmol/L (136-145)
[2022-02-16 16:08] LABS: Band 6 % (5-11); Lymphocytes 17 % (21-51); MDiff Complete? YES; Monocytes 8 % (0-10); Neutrophil 68 % (42-75); Platelet Morphology Comment Appears Adequate; Reactive Lymphocytes 1 % (0-10)
[2022-02-16] MEDS ORDERED: Acetaminophen 500 MG TAB ONE (16:26)
[2022-02-16] MEDS ORDERED: Sodium Chloride 0.9% 1,000 ML ONE (16:51)
== END 2022-02-16 17:50 | disposition home or self-care (01) ==
LOC: NAV ERS 14:06
DX: N10 Acute pyelonephritis (principal); K21.9 Gastro-esophageal reflux disease without esophagitis; Z79.899 Other long term (current) drug therapy
CPT/HCPCS: 36415; 74176; 80053; 81003; 81015; 83605; 85025; 87040; 87077; 87086; 87149; 87186; 96361; 96365; 96375; J0696; J1885; J2405; J7050

== ENCOUNTER 2022-10-06 14:50 | Emergency (ER) | payer OTHER ==
[2022-10-06 16:34] LABS: Bilirubin Negative (Negative); Blood, Urine Large (Negative); Glucose, Urine (Dipstick) Negative (Negative); Ketone, Urine Negative (Negative); Leukocyte Large (Negative); Nitrite Positive (Negative); Protein, Urine (Dipstick) 100 mg/dL (Neg-Trace); Specific Gravity, Urine 1.025 (1.005-1.030); Urobilinogen 0.2 mg/dL (Less than 2)
[2022-10-06 16:46] LABS: Clarity Opaque (Clear)
[2022-10-06 16:47] LABS: Bacteria/HPF 3+ HPF (None Seen); Calcium Oxalate Crystals Rare HPF (None Seen); WBC/HPF Greater Than 50 HPF (0-3)
[2022-10-06 16:48] LABS: Pregnancy Test - Urine (BHCG) Negative (Negative); Pregu Control Background? CLEAR/WHITE (CLR/WHITE); Pregu Control Bar Appear? YES (CONTROL BAR); Specific Gravity 1.025 (1.002-1.036)
== END 2022-10-06 17:26 | disposition home or self-care (01) ==
LOC: NAV ERS 14:50
DX: N30.00 Acute cystitis without hematuria (principal); K21.9 Gastro-esophageal reflux disease without esophagitis; Z79.899 Other long term (current) drug therapy
CPT/HCPCS: 81003; 81015; 81025; 87077; 87086; 87186; 99283

== ENCOUNTER 2025-04-15 09:21 | Emergency (ER) | payer OTHER | END 2025-04-15 10:17 | disposition home or self-care (01) | LOC: NAV ERS 09:21 | DX: R51.9 Headache, unspecified (principal) | CPT/HCPCS: 99283 ==